=== PATIENT | female | born 2000 | race Two or more races ===

== ENCOUNTER 2023-09-09 19:52 | Emergency (ER) | payer MEDICAID, OTHER ==
[~2023-09-09] VITALS: Ht 160 cm; Wt 70.3 kg
[2023-09-09 21:05] LABS: Urine Epithelial Cast None Seen /hpf (<5)
[2023-09-09 21:18] LABS: Urine Bacteria NONE SEEN /hpf (None Seen); Urine Blood 2+ /uL (Negative); Urine Clarity HAZY (Clear); Urine Color Yellow (Yellow); Urine Protein, UAD 1+ (Negative); Urine Specific Gravity 1.021 (1.001-1.035); Urine Urobilinogen Normal (Negative); Urine WBC 459 /hpf (0 - 5); Urine WBC Clumps PRESENT /hpf (None Seen)
[2023-09-10] MEDS ORDERED: cefTRIAXone SOD 1,000 MG VL IM ONE (00:30)
[2023-09-10] MEDS ORDERED: SULF800T23 PO (00:31)
[2023-09-10] MEDS ORDERED: ACET500T58 PO (00:31)
[2023-09-10 06:12] VITALS: BP 134/76; PULSE 109; RESP 16; TEMP 98; O2SAT 99
== END 2023-09-10 00:31 | disposition home or self-care (01) ==
LOC: ER 19:52
DX: N39.0 Urinary tract infection, site not specified (principal); Z32.02 Encounter for pregnancy test, result negative
CPT/HCPCS: 81001; 81025; 96372; 99283; J0696